=== PATIENT | female | born 1985 | race Caucasian/White ===

== ENCOUNTER 2022-07-31 14:38 | Outpatient (CLI) | payer OTHER, MEDICAID, SELFPAY ==
--- NOTE | 2022-07-31 15:00 | XR_ITS ---
WS: [id number] SCREENING DEXA SCAN Dress Code CLINICAL INFORMATION: hx of gastric bypass surgery-screening dexa COMPARISON: None. FINDINGS: The L1-L4 bone mineral density measures 1.150 g/cm2. This corresponds to a T score score of -0.2 and Z score of -1.4. Left femoral neck bone mineral density measures 1.099 g/cm2. This corresponds to a T score of 0.7 and Z score of 0.1. Right femoral neck bone mineral density measures 1.098 g/cm2. This corresponds to a T score 0.7of and Z score of 0.1. Mean femoral neck bone mineral density measures 1.098 g/cm2. This corresponds to a T score of 0.7 and Z score of 0.1. XR/XR DEXA axial skeleton* [id number] IMPRESSION: Normal bone mineralization. FRAX score not calculated due to age below the range.
== END 2022-07-31 14:39 | disposition home or self-care (01) ==
PROVIDERS: PCP Clinical Nurse Specialist Adult Health; Visit Provider Clinical Nurse Specialist Adult Health
DX: Z98.84 Bariatric surgery status (principal)
CPT/HCPCS: 77080

== ENCOUNTER → 2022-08-08 08:02 | Outpatient (BNVA) | payer OTHER, MEDICAID, SELFPAY | PROVIDERS: PCP Clinical Nurse Specialist Adult Health; Visit Provider Clinical Nurse Specialist Adult Health | DX: Z98.84 Bariatric surgery status (principal); J45.909 Unspecified asthma, uncomplicated; J06.9 Acute upper respiratory infection, unspecified | CPT/HCPCS: 80053; 82306; 82607 ==

== ENCOUNTER → 2023-01-04 10:11 | Outpatient (BNVA) | payer OTHER, MEDICAID, SELFPAY | PROVIDERS: PCP Clinical Nurse Specialist Adult Health; Visit Provider Clinical Nurse Specialist Adult Health | DX: E06.3 Autoimmune thyroiditis (principal); Z12.4 Encounter for screening for malignant neoplasm of cervix; E28.2 Polycystic ovarian syndrome; F39 Unspecified mood [affective] disorder; F32.81 Premenstrual dysphoric disorder; R21 Rash and other nonspecific skin eruption; Z98.84 Bariatric surgery status | CPT/HCPCS: 84436; 84443; 84481 ==

== ENCOUNTER → 2023-01-31 09:40 | Outpatient (BNVA) | payer OTHER, MEDICAID, SELFPAY | PROVIDERS: PCP Clinical Nurse Specialist Adult Health; Visit Provider Nurse Practitioner Women's Health | DX: Z01.419 Encounter for gynecological examination (general) (routine) without abnormal findings (principal); F32.81 Premenstrual dysphoric disorder; E28.2 Polycystic ovarian syndrome; N81.89 Other female genital prolapse | CPT/HCPCS: 87624; 88175 ==

== ENCOUNTER → 2023-02-27 10:23 | Outpatient (BNVA) | payer OTHER, MEDICAID, SELFPAY | PROVIDERS: PCP Clinical Nurse Specialist Adult Health; Visit Provider Nurse Practitioner | DX: J02.9 Acute pharyngitis, unspecified (principal) | CPT/HCPCS: 87880 ==

== ENCOUNTER 2023-03-08 10:50 | Observation (INO) | payer OTHER, MEDICAID, SELFPAY ==
--- NOTE | 2023-03-07 10:35 | ANES.PREANE2 ---
Pre-Anesthetic Assessment Height/Weight: Height 1.68 m Weight 93.44 kg Operation Date: 03/08/23 09:00 Proposed Procedures p Posterior colporrhaphy 51888, Single incision cling 58432 ,N81.6,N39.46(Not Applicable) - Hayden Mota MD s Sling Single Incision Sling(Not Applicable) - Hayden Mota MD Familial anesthetic complications: None Social No alcohol and No tobacco Exam alert, oriented x 3, clear to auscultation bilaterally and regular rate & rhythm Airway Mallampati: Class II Dentition: other (missing) Pulmonary Asthma Metabolic mayur's Anesthetic Plan ASA status: 2 Anesthesia: General Risk of > 500 ml blood loss (7ml/kg in children): No Medications/Allergies Home Medications Medication Instructions Recorded Confirmed Last Taken Type drospirenone 3 mg-ethinyl 1 tab PO DAILY #84 tabs 01/31/23 03/07/23 03/07/23 Rx estradiol 0.02 mg tablet (GREGORIA (28)) fluoxetine 10 mg capsule (Prozac) 10 mg PO DAILY for premenstrual 01/31/23 03/07/23 03/07/23 Rx depression #30 caps Allergies Allergy/AdvReac Type Severity Reaction Status Date / Time penicillin G Allergy Mild RESP. 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 H/O tubal ligation (~2020) History of cryosurgery Hx of gastric bypass (~2016) gastric sleeve Family History Denies family history of Colon cancer Ovarian cancer Diabetes Heart disease Hyperlipidemia Breast cancer Hypertension Uterine cancer Thyroid disease Stroke Female Reproductive History Date of last menstrual period: 02/21/23 Data Anesthesia Cardiac Studies: No Data to Display
[2023-03-07 11:34] LABS: Add Urine Microscopic? NO; Charge for UA Resulting for Rev
[2023-03-07 11:38] LABS: Basophils % 0.5 %; Eosinophils # 0.2 10^3/uL (0.0-0.8); Eosinophils % 2.4 %; Hematocrit 41.4 % (37.0-47.0); Hemoglobin 13.7 g/dL (11.5-15.3); Lymphocytes # 2.3 10^3/uL (0.8-4.8); Lymphocytes % 27.7 %; Mean Corpuscular HGB Conc 33.1 g/dL (30.0-36.0); Mean Corpuscular Volume 84.7 fl (81-99); Mean Platelet Volume 10.9 fL (7.4-10.4); Monocytes # 0.5 10^3/uL (0.2-0.9); Monocytes % 6.3 %; Neutrophils # 5.16 10^3/uL (1.8-7.7); Neutrophils % 62.7 %; Nucleated Red Blood Cells % 0 %; Platelet Count 237 10^3/cmm (130-400); Red Blood Count 4.89 10^6/uL (4.1-5.3); Red Cell Distribution Width 12.9 % (12.1-15.1); White Blood Count 8.2 10^3/uL (4.0-10.0)
[2023-03-07 11:49] LABS: Bilirubin Urine Neg (Negative); Blood Urine Neg (Negative); Glucose Urine UA Norm (Normal); Ketones Urine Negative (Negative); Leukocyte Esterase Urine Negative (Negative); Nitrate Urine Negative (Negative); Protein Urine Neg (Negative); Urine Appearance Clear (CLEAR); Urine Color Yellow (Yellow); Urobilinogen Urine Neg (Negative); pH Urine 7 (5-7)
[2023-03-07 11:55] LABS: Alanine Aminotransferase 8 U/L (0-33); Albumin Level 4.2 g/dL (3.5-5.2); Alkaline Phosphatase 95 U/L (35-105); Anion Gap 15.1 (5-19); Aspartate Amino Transferase 13 U/L (0-32); Blood Urea Nitrogen 13 mg/dL (6-20); Calcium 8.9 mg/dL (8.5-10.5); Carbon Dioxide 22 mmol/L (22-29); Chloride 103 mmol/L (98-107); Globulin 3.1 g/dL (1.3-4.6); Glomerular Filtration Rate 70.1 mL/min (90-130); Glucose 90 mg/dL (65-115); Osmolality Calculated 282 mOsm/kg (285-295); Potassium 4.1 mmol/L (3.5-5.1); Sodium 136 mmol/L (136-145); Total Bilirubin 0.2 mg/dL (0.15-1.2); Total Protein 7.3 g/dL (6.6-8.7)
[2023-03-08] VITALS (15 sets, daily range): BP systolic 100–170; BP diastolic 64–96; PULSE 78–102; RESP 16–20; TEMP 36.2–37.6; O2SAT 90–98
--- NOTE | 2023-03-08 07:36 | P.ANESUD_ITS ---
Pre-Anesthetic Update Pre-Anesthetic Assessment: Date of Surgery/Procedure: 03/08/23 Preop Sonja gnosis: Stress urinary incontinence, rectocele Proposed Procedure: Operation Date: 03/08/23 09:00 Proposed Procedures p Posterior colporrhaphy 95626, Single incision cling 30995 ,N81.6,N39.46(Not Applicable) - Hayden Mota MD s Sling Single Incision Sling(Not Applicable) - Hayden Mota MD Any changes to Pre-Anesthetic Assessment?: No Last Intake: Intake Last Liquid Date 03/07/23 Last Liquid Time 21:00 Last Solid Date 03/08/23 Last Solid Time 21:00 Labs Last 48hrs: Short CBC 03/07/23 Range/Units 10:26 WBC 8.2 (4.0-10.0) 10^3/ uL Hgb 13.7 (11.5-15.3) g/dL Hct 41.4 (37.0-47.0) % MCV 84.7 (81-99) fl Plt Count 237 (130-400) 10^3/c mm Neut % (Auto) 62.7 % Neut # (Auto) 5.16 (1.8-7.7) 10^3/u L BMP 03/07/23 10:26 Sodium 136 Potassium 4.1 Chloride 103 Carbon Dioxide 22 BUN 13 Creatinine 0.9 Glucose 90 Calcium 8.9 Liver Function 03/07/23 Range/Units 10:26 Total Bilirubin 0.2 (0.15-1.2) mg/dL AST 13 (0-32) U/L ALT 8 (0-33) U/L Alkaline Phosphata se 95 (35-105) U/L Albumin 4.2 (3.5-5.2) g/dL Urine 03/07/23 Range/Units 10:26 Urine Color Yellow (Yellow) Urine Appearance Clear (CLEAR) Urine pH 7 (5-7) Ur Specific Gravit y 1.010 (1.005-1.030) Urine Protein Neg (Negative) Urine Glucose (UA) Norm (Normal) Urine Ketones Negative (Negative) Urine Nitrate Negative (Negative) Urine Bilirubin Neg (Negative) Ur Leukocyte Lou ase Negative (Negative) Blood Bank 03/07/23 10:26 Blood Type A Negative Rho(D) Type Negative Antibody Screen Negative Exam: Pre-Anes Outpt Exam: alert, oriented x 3, clear to auscultation bilaterally and regular rate & rhythm Cardiac Studies: No Data to Display
[2023-03-08] MEDS: sodium chloride 0.9% 500 ML IV (07:43)
[2023-03-08] MEDS: scopolamine 1.5 Patch 1 PATCH TRANSDERMA (07:43)
--- NOTE | 2023-03-08 07:47 | W.PM.OPSUD ---
Surgery/Procedure H&P Update DATE OF PROCEDURE: March 08, 2023 DATE H&P PERFORMED: 03/06/23 H&P UPDATE INFORMATION: I have reviewed H&P completed within last 30 days, I have examined patient prior to procedure and No changes to prior documentation PREOP DIAGNOSIS: Stress urinary incontinence, rectocele PLANNED PROCEDURE: Operation Date: 03/08/23 09:00 Proposed Procedures p Posterior colporrhaphy 71613, Single incision cling 35174 ,N81.6,N39.46(Not Applicable) - Hayden Mota MD s Sling Single Incision Sling(Not Applicable) - Hayden Mota MD
[2023-03-08] MEDS: sodium chloride 0.9% 1,000 ML 30 ML IV (08:04)
[2023-03-08] MEDS: levofloxacin-dextrose 5 % 500 MG/100 ML PREMIX 100 MG IV (08:31)
[2023-03-08 08:32] LABS: OR HCG Qualitative Urine Negative (Negative)
[2023-03-08] MEDS: lidocaine-epi 2% 20 mL INJ INJECTION ×2 (09:08→09:23)
[2023-03-08] MEDS: vancomycin 1,000 MG in sodium chloride 0.9% 250 ML 250 MG IV (09:09)
[2023-03-08] MEDS: estrogens Conjugated Cream 30 gm 1 APPLIC VAGINAL (10:04)
--- NOTE | 2023-03-08 10:29 | P.OP_ITS ---
Operative Report Date of procedure: March 08, 2023 Pre-op diagnosis: Preop Diagnosis Stress urinary incontinence, rectocele Post-op diagnosis: Same Procedure done: Single incision mid urethral sling. Posterior colporrhaphy. Cystoscopy Surgeon: Hayden Mota MD Estimated blood loss (mL): 200 IV fluids (mL): 800 Urine output (mL): 300 Procedure: After obtaining informed consent, the patient was taken to the operating room and placed in the supine position, given general anesthesia, and prepped and draped in sterile fashion. The abdomen, vulva and vagina were prepped and draped in a sterile manner. A time out procedure was performed. The anterior vaginal mucosa beneath the midurethra was infiltrated with 2% lidocaine with epinephrine. A vertical midline incision was made beneath the midurethra, nearly 1.5 cm length. Careful submucosal dissection was performed bilaterally up to the interior portion of the inferior pubic ramus. The insertion of adductor longus tendon on the patient?s pubic ramus was identified as reference land roddy. Palpated the notch along the internal edge of ischiopubic ramus where the adductor longus tendon and the inferior pubic ramus meet. The Altis single incision sling (SIS) was selected. Then the needle of the SIS inserted aiming at the location of this notch. One of the integrated self-fixating tips place onto the needle by sliding it over the end of the needle. The needle/sling assembly was inserted toward the location of identified reference notch making sure that the flat of the handle is perpendicular to the desired path. The needle was tracked along the posterior surface of the ischiopubic ramus until the midline roddy on the mesh is approximately at the midline position under the urethra. The needle was removed and the same was repeated on the contralateral side until the appropriate sling tension under the urethra was achieved ensuring that the mesh lays flat. The needle was removed and vaginal incision was closed in a running interlocking fashion with 2-0 Vicryl. A 2% lidocaine with epinephrine was infiltrated under the posterior vaginal muco sa midline and into the perineal body. An diamine shaped perineorrhaphy was cut in the perineum. The posterior vaginal wall was opened vertically and midline up to the apex of the rectocele. The cut edges were held and splayed laterally with a series of [Allis/Kochers/T-clamps]. The open vaginal mucosa was then dissected laterally with a combination of sharp and blunt dissection, exposing the ashley rectal fascia. The perirectal fascia was then reapproximated with interrupted #2-0 Vicryl sutures to draw the lateral folds together and tuck the rectocele back. Deep interrupted sutures of #0 Vicryl were used to reapproximate the fibers of the levator ani muscles. The excess vaginal mucosa was trimmed. The posterior vaginal wall was closed with a running locked #0 Vicryl to the hymenal tags. The superficial perineal muscles were closed with running unlocked #0 Vicryl and the perineal skin was closed with running subcuticular #2-0 Vicryl. Then the Lowe catheter was removed and cystoscope was inserted. The bladder was filled with sterile water. Complete evaluation of the bladder mucosa was performed noting no lacerations, dimpling, tears, bleeding of the mucosa or muscular layers. Both ureteral orifices were identified. Prompt excretion of urine from both ureteral orifices was noted. Cystoscope was withdrawn. The Lowe catheter was replaced. Excellent hemostasis was obtained. A vaginal pack is placed overnight as postoperative support for the vaginal tissues after graft placement and closure of vaginal incisions. Sponge, lap, needle, and instrument counts were correct times three. The patient was taken to the recovery room, awake and in stable condition.
--- NOTE | 2023-03-08 11:26 | SUR.PHASEI ---
pt arrived in recovery breathing room air pt responds to verbal cues moves all extremities. pt vitals stable for recovery time pt states no pain when asked. pt taken to room in ob report given to nurse belongings placed in patient room a belonging bag with clothes, a purse and a backpack were placed in room with patient.
[2023-03-08] MEDS: lanolin oint 7 gm 1 APPLIC TOPICAL (12:47)
[2023-03-08] MEDS: ketorolac 30 mg/mL INJ IVP ×3 (12:47→23:12)
[2023-03-08] MEDS: dextrose 5%-lactated ringers 1,000 ML 125 ML IV ×2 (12:54→20:00)
--- NOTE | 2023-03-08 13:59 | ANE.PACU2 ---
Inpatient post-anesthesia follow up: Airway intact: Yes Vital signs: Temperature 97.9 F Pulse Rate 80 Respiratory Rate 18 Blood Pressure 137/82 Pulse Oximetry 93 Oxygen Delivery Me thod Room Air Oxygen Flow Rate Fraction of Inspir ed Oxygen Hydration adequate: Yes Nausea and vomiting: No Pain level: 1 Mental status: Baseline
--- NOTE | 2023-03-08 16:25 | PC.NURSE ---
Patient transitioned from bed to chair with Eligio Cardenas RN and Orlando Sharma RN available for standby assistance, patient toleration of activity was fair with mild discomfort and labored respirations throughout. Patient now comfortable seated in chair with call light in reach. Denies further needs at this time, encouraged to call if any arise.
[2023-03-08] MEDS: docusate sodium 100 mg Capsule PO (17:09)
[2023-03-09] MEDS: ketorolac 30 mg/mL INJ IVP (04:58)
[2023-03-09 05:03] VITALS: BP 129/85; PULSE 74; RESP 18; O2SAT 97
[2023-03-09 05:10] VITALS: TEMP 36.8
[2023-03-09 05:12] LABS: Hemoglobin 10.5 g/dL (11.5-15.3); Mean Corpuscular HGB Conc 32.8 g/dL (30.0-36.0); Mean Corpuscular Hemoglobin 28.1 pg (28.0-34.0); Mean Corpuscular Volume 85.6 fl (81-99); Mean Platelet Volume 10.5 fL (7.4-10.4); Platelet Count 159 10^3/cmm (130-400); Red Blood Count 3.74 10^6/uL (4.1-5.3); Red Cell Distribution Width 12.7 % (12.1-15.1); White Blood Count 9.6 10^3/uL (4.0-10.0)
[2023-03-09] MEDS: fluoxetine 10 mg Capsule PO (09:20)
[2023-03-09] MEDS: docusate sodium 100 mg Capsule PO (09:21)
[2023-03-09] MEDS: ibuprofen 800 mg tablet PO (10:08)
--- NOTE | 2023-03-09 10:11 | PM.OBGYDC ---
Discharge Providers SMT MACHINE OPERATOR Date of Admission: 03/08/23 10:50 Date of Discharge: 03/09/23 Attending Provider at Admission: Hayden Mota MD Attending Provider at Discharge: Hayden Mota MD Primary SMT MACHINE OPERATOR: Hayden Mota MD Primary Care Provider: Roberto Tobar Reason for Visit Reason for Visit: N95.0 Hospital Course Hospital Course Mrs. Ji 37-year-old female with rectocele stage II and stress urinary incontinence. Was admitted for planned single incision mid urethral sling and posterior colporrhaphy. The procedures were performed without complication. She is afebrile hemodynamically stable postoperative day 1. Overnight observation uneventful. PVR after first void within normal limits. Tolerating diet well. Ambulating without difficulty. She was counseled regarding limitation on heavy weight lifting to 10 pounds and pelvic rest for 6 weeks (no sex, no tampons, no vaginal douches). Return to the emergency room if any fever, increased bleeding or pain. Physical Exam Narrative: GA: Alert and oriented ?3. HEENT: WNL. Heart: Regular rate and rhythm. Lungs: Clear to auscultation bilaterally. Abdomen: Bowel sounds present, nontender, minimal tenderness. [employer]ANCE: Spotting bleeding. Extremities: No edema, no cyanosis, no calves pain. Urinary Catheter Management: Lowe: Cath Placed During This Visit: yes, but has since been removed by the nurse Reason for Continuing Indwelling Catheter: Decision to DC Catheter Urinary Catheter Date of Insertion: 03/08/23 Urinary Catheter Time of Insertion: 09:03 Date Urinary Catheter Removed: 03/09/23 Time Urinary Catheter Discontinued: 05:03 History History History 5 Term 2 0 Miscarriages/Ectopic 3 Living Children 2 Discharge Data Studies Completed and Pending Pending at discharge Category Date Time Status Urine Culture Routine Lab 03/07/23 10:26 Results Laboratory Results WBC 9.6 10^3/uL (4.0-10.0) 03/09/23 05:09 RBC 3.74 10^6/uL (4.1-5.3) L 03/09/23 05:09 Hgb 10.5 g/dL (11.5-15.3) L 03/09/23 05:09 Hct 32.0 % (37.0-47.0) L 03/09/23 05:09 MCV 85.6 fl (81-99) 03/09/23 05:09 MCH 28.1 pg (28.0-34.0) 03/09/23 05:09 MCHC 32.8 g/dL (30.0-36.0) 03/09/23 05:09 RDW 12.7 % (12.1-15.1) 03/09/23 05:09 Plt Count 159 10^3/cmm (130-400) 03/09/23 05:09 MPV 10.5 fL (7.4-10.4) H 03/09/23 05:09 Neut % (Auto) 62.7 % 03/07/23 10:26 Lymph % (Auto) 27.7 % 03/07/23 10:26 Maries % (Auto) 6.3 % 03/07/23 10:26 Eos % (Auto) 2.4 % 03/07/23 10:26 Baso % (Auto) 0.5 % 03/07/23 10:26 Neut # (Auto) 5.16 10^3/uL (1.8-7.7) 03/07/23 10:26 Lymph # (Auto) 2.3 10^3/uL (0.8-4.8) 03/07/23 10:26 Maries # (Auto) 0.5 10^3/uL (0.2-0.9) 03/07/23 10:26 Eos # (Auto) 0.2 10^3/uL (0.0-0.8) 03/07/23 10:26 Baso # (Auto) 0.0 10^3/uL (0.0-0.1) 03/07/23 10:26 Nucleated RBC % (auto) 0 % 03/07/23 10:26 Nucleated RBCs # 0.0 /100WBC 03/07/23 10:26 Sodium 136 mmol/L (136-145) 03/07/23 10:26 Potassium 4.1 mmol/L (3.5-5.1) 03/07/23 10:26 Chloride 103 mmol/L (98-107) 03/07/23 10:26 Carbon Dioxide 22 mmol/L (22-29) 03/07/23 10:26 Anion Gap 15.1 (5-19) 03/07/23 10:26 BUN 13 mg/dL (6-20) 03/07/23 10:26 Creatinine 0.9 mg/dL (0.5-0.9) 03/07/23 10:26 GFR Calculation 70.1 mL/min (90-130) L 03/07/23 10:26 Glucose 90 mg/dL (65-115) 03/07/23 10:26 Calculated Osmolality 282 mOsm/kg (285-295) L 03/07/23 10:26 Calcium 8.9 mg/dL (8.5-10.5) 03/07/23 10:26 Total Bilirubin 0.2 mg/dL (0.15-1.2) 03/07/23 10:26 AST 13 U/L (0-32) 03/07/23 10:26 ALT 8 U/L (0-33) 03/07/23 10:26 Alkaline Phosphatase 95 U/L (35-105) 03/07/23 10:26 Total Protein 7.3 g/dL (6.6-8.7) 03/07/23 10:26 Albumin 4.2 g/dL (3.5-5.2) 03/07/23 10:26 Globulin 3.1 g/dL (1.3-4.6) 03/07/23 10:26 Urine Color Yellow (Yellow) 03/07/23 10:26 Urine Appearance Clear (CLEAR) 03/07/23 10:26 Urine pH 7 (5-7) 03/07/23 10:26 Ur Specific Renner 1.010 (1.005-1.030) 03/07/23 10:26 Urine Protein Neg (Negative) 03/07/23 10:26 Urine Glucose (UA) Norm (Normal) 03/07/23 10:26 Urine Ketones Negative (Negative) 03/07/23 10:26 Urine Blood Neg (Negative) 03/07/23 10:26 Urine Nitrate Negative (Negative) 03/07/23 10:26 Urine Bilirubin Neg (Negative) 03/07/23 10:26 Urine Urobilinogen Neg mg/dL (Negative) 03/07/23 10:26 Ur Leukocyte Esterase Negative (Negative) 03/07/23 10:26 Urine HCG, Qual Negative (Negative) 03/08/23 07:30 Blood Type A Negative 03/07/23 10:26 Rho(D) Type Negative 03/07/23 10:26 Antibody Screen Negative 03/07/23 10:26 Vitals Last Vital Signs Temp 98.2 F 03/09/23 05:10 Pulse 74 03/09/23 05:03 Resp 18 03/09/23 05:03 BP 129/85 03/09/23 05:03 Pulse Ox 97 03/09/23 05:03 O2 Del Method Room Air 03/09/23 05:03 Discharge Plan Discharge Patient Disposition: Home Condition: Stable Prescriptions: New hydrocodone-acetaminophen 5-325 mg tablet 1 tab PO Q4H PRN (Reason: pain) Qty: 20 0RF docusate sodium [Colace] 100 mg capsule 100 mg PO BID Qty: 60 0RF acetaminophen 325 mg capsule 325 mg PO Q4H PRN (Reason: fever or postoperative pain) Qty: 60 0RF ferrous sulfate [Iron (ferrous sulfate)] 325 mg (65 mg iron) tablet 325 mg PO BID Qty: 60 0RF ibuprofen 800 mg tablet 800 mg PO TID PRN (Reason: pain) Qty: 60 0RF Continued drospirenone-ethinyl estradiol [GREGORIA (28)] 3-0.02 mg tablet 1 tab PO DAILY Qty: 84 0RF fluoxetine [Prozac] 10 mg capsule 10 mg PO DAILY Qty: 30 1RF Discharge Orders: Discharge Order (Routine); Ordered 03/09/23 Ordered By: Hayden Mota Referrals: Hayden Mota MD [Physician] - 03/27/23 1:15 pm (Your follow up appointment with Dr. Mota is on 03/27/23 at 1:15pm. ) Discharge Diet: Soft Mechanical Discharge Activity: Limit activity as instructed Patient Instructions: Ibuprofen (By injection), Bladder Sling for Women (GEN), OB Discharge Report, OB Food/Drug Interaction Guide, Opioid Safety, Posterior Vaginal Repair (GEN) Activity Restrictions/Additional Instructions: 1. Please call [facility] on next working day to make your post-operative appointment in 2 weeks. 2. Please stay home until you come back to the clinic on first post-hospatilization check up. 3. Please follow instructions on your medications CAREFULLY. 4. If you have abdominal incision, do not cover it unless dressing is necessary because of drainage. OK to shower, but avoid bath. Leave steri-strips until they fall off. If they are still on one week after surgery, you may remove them. 5. If you had vaginal surgery or vaginal repair, Dr. Mota may instruct you to take SITZ bath. 6. Yellow, blood tinged odorous vaginal discharge is usually normal after hysterectomy or vaginal surgeries. 7. No SEXUAL INTERCOURSE, tampons, or douches until you are completely released from the post-operative care. 8. Avoid constipation by eating right and maybe using some Metamucil or Milk of Magnesia. 9. All prescription refills are given during the working hours. Please do no wait till it runs out. Call the clinic at [phone] before your medication runs out. The clinic will get in touch with your doctor to prescribe medications if necessary. 10. Please remain within 40 mile radius from our hospital because emergencies do happen now and then during the post-operative period. 11. If you have stairs at home, take one step at a time slowly and minimize the number of trips. It helps to stay in one floor for the next few days. No lifting except what you can lift by one hand until you are released from the post-operative care. 12. Driving is discouraged until you are well healed. It may be 3-4 weeks before you feel strong enough to drive. You should be able to turn and look through the rear window without pain and you should be able to push the brake pedal very hard without pain before you drive. No fast rules, but SAFETY should be your primary concern. DO NOT drive if you are on sedating medications such as narcotics. 13. Call the clinic (during working hours) to make urgent appointment or go to the Emergency room, if any of the following occurs: i. Vaginal bleeding becomes heavy, more than a period. ii. Incision becomes red and sore, or drains pus. iii. Your TEMPERATURE is over 100.4F or you have chill. iv. IV site becomes red and swollen (a little ``knot?? is usually OK) v. Persistent nausea and vomiting vi. Persistent constipation or diarrhea vii. Rash or allergic reaction to medications. Discharge Attestations SMT MACHINE OPERATOR Time Spent in Discharge Care*: greater than 30 min Coding Level of Care Code Acute Code for Chg Fwd Diagnoses
[2023-03-09 10:48] VITALS: BP 133/86; PULSE 72; RESP 18; TEMP 37.4; O2SAT 96
[2023-03-09 11:00] VITALS: BP 133/86; PULSE 72; RESP 18; TEMP 37.4; O2SAT 96
== END 2023-03-09 10:52 | disposition home or self-care (01) ==
LOC: OBGYN 10:52
PROVIDERS: Admitting Provider Obstetrics & Gynecology; PCP Clinical Nurse Specialist Adult Health; Visit Provider Obstetrics & Gynecology
PROC: (CPT 57250; principal; 2023-03-08 09:00)
PROC: (CPT 57288; 2023-03-08 09:00)
PROC: 0TJB8ZZ Inspection of Bladder, Via Natural or Artificial Opening Endoscopic (ICD-10-PCS; CPT 52000; 2023-03-08 09:00)
DX: N81.3 Complete uterovaginal prolapse (principal); N39.46 Mixed incontinence; J45.909 Unspecified asthma, uncomplicated; E66.01 Morbid (severe) obesity due to excess calories; Z68.33 Body mass index [BMI] 33.0-33.9, adult; Z88.0 Allergy status to penicillin
CPT/HCPCS: 57250; 57288; 36415; 51798; 80053; 81003; 81025; 84703; 85025; 85027; 86850; 86900; 87086; 96374; 96376; C1713; G0378; J0171; J1100; J1200; J1885; J1956; J2250; J2405; J2704; J2710; J3010; J3370; J3490; J7030; J7040; J7050; J7121

== ENCOUNTER → 2023-07-24 09:47 | Outpatient (BNVA) | payer BC, MEDICAID, SELFPAY | PROVIDERS: PCP Clinical Nurse Specialist Adult Health; Visit Provider Clinical Nurse Specialist Adult Health | DX: J06.9 Acute upper respiratory infection, unspecified (principal); Z20.822 Contact with and (suspected) exposure to COVID-19 | CPT/HCPCS: 87426 ==

== ENCOUNTER → 2024-02-14 07:53 | Outpatient (BNVA) | payer BC, MEDICAID, SELFPAY | PROVIDERS: PCP Clinical Nurse Specialist Adult Health; Visit Provider Clinical Nurse Specialist Adult Health | DX: I10 Essential (primary) hypertension (principal) | CPT/HCPCS: 83036; 85025; 87045; 87046; 87177; 87209; 87427; 87449; 87493 ==

== ENCOUNTER → 2024-04-07 09:30 | Outpatient (BNVA) | payer BC, MEDICAID, SELFPAY | PROVIDERS: PCP Clinical Nurse Specialist Adult Health; Visit Provider Clinical Nurse Specialist Adult Health | DX: N39.0 Urinary tract infection, site not specified (principal) | CPT/HCPCS: 81000 ==

== ENCOUNTER 2024-06-03 08:18 | Outpatient (CLI) | payer BC, MEDICAID, SELFPAY ==
--- NOTE | 2024-06-03 08:30 | MM_ITS ---
WS: [id number] BILATERAL 3D TOMOSYNTHESIS DIGITAL SCREENING MAMMOGRAPHY WITH CAD CLINICAL INFORMATION: Z12.31 - Encounter for screening mammogram for malignant ... HISTORY: Screening mammogram. No current complaints. COMPARISON: None. TECHNIQUE: Bilateral CC and MLO views. FINDINGS: The breasts are composed of heterogeneous fibroglandular density tissue, which can limit the detectio n of small underlying mass lesions. No suspicious mass, asymmetry, calcifications, or architectural d istortion. No evidence of malignancy. MM/[place] [id number] IMPRESSION: BI-RADS: 1-Negative FOLLOW UP: 1 Year Follow-up Recommend return to annual screening mammography.
== END 2024-06-03 08:19 | disposition home or self-care (01) ==
LOC: RAD 08:18
PROVIDERS: PCP Clinical Nurse Specialist Adult Health; Visit Provider Nurse Practitioner Women's Health
DX: Z12.31 Encounter for screening mammogram for malignant neoplasm of breast (principal); R92.333 Mammographic heterogeneous density, bilateral breasts
CPT/HCPCS: 77063; 77067

== ENCOUNTER 2024-06-29 20:57 | Emergency (ER) | payer BC, MEDICAID, SELFPAY ==
[2024-06-29] VITALS (8 sets, daily range): BP systolic 133–178; BP diastolic 97–105; PULSE 105–118; RESP 16–25; TEMP 37.2; O2SAT 94–100; BMI 34.7
--- NOTE | 2024-06-29 21:17 | XRR_ITS ---
PROCEDURE INFORMATION: Exam: XR Chest Exam date and time: 06/29/2024 9:30 PM Age: 38 years old Clinical indication: Cough and shortness of breath; Prior surgery; Surgery date: 6+ months; Surgery type: Gastric sleeve; Patient HX: C/O cough with SOB. History of asthma. TECHNIQUE: Imaging protocol: Radiologic exam of the chest. Views: 1 view. COMPARISON: No relevant prior studies available. FINDINGS: Lungs: Left lung ground-glass airspace opacities suggestive of an early bronchopneumonia. Pleural spaces: Unremarkable. No pleural effusion. No pneumothorax. Heart/Mediastinum: Unremarkable. No cardiomegaly. Bones/joints: Unremarkable. XR/XR chest 1V portable [id number] IMPRESSION: Left lung ground-glass airspace opacities suggestive of an early bronchopneumonia.
[2024-06-29] MEDS: ipratropium-albuterol 3 mL Neb INHALATION (21:20)
--- NOTE | 2024-06-29 21:34 | ED_ITS ---
HPI - SOB/Dyspnea 2 General: Chief Complaint: Shortness of Breath/Dyspnea Stated Complaint: Asthma attack Cant breathe Time Seen by Provider: 06/29/24 21:08 History of Present Illness: HPI Narrative: 38-year-old female with a history of ast hma. She presents after developing cough, runny nose, and sudden short of breath this afternoon. Its progressed this afternoon into the evening. She used her inhaler without much improvement. Related Data Previous Rx's Medication Instructions Recorded mupirocin 2 % topical ointment 1 applic topical BID #15 grams 12/06/23 losartan 50 mg tablet 50 mg PO DAILY #30 tabs 02/14/24 fluoxetine 10 mg capsule See Rx Instructions .Route 05/12/24 .COMPLEX #30 caps clindamycin phosphate 1 % topical 1 applic topical DAILY #50 grams 05/21/24 foam drospirenone 3 mg-ethinyl See Rx Instructions .Route 05/21/24 estradiol 0.02 mg tablet (Loryna .COMPLEX #84 tabs (28)) doxycycline hyclate 100 mg tablet 100 mg PO BID 7 days #14 tabs 06/29/24 prednisone 50 mg tablet 50 mg PO DAILY 5 days #5 tabs 06/29/24 Allergies Allergy/AdvReac Type Severity Reaction Status Date / Time penicillin G Allergy Mild RESP. 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 Performed by Dr. Mota at [facility] History of cryosurgery H/O dilation and curettage treatment for SAB at 10-12 weeks-- had fever and infection. H/O tubal ligation (~2020) Hx of gastric bypass (~2016) gastric sleeve Family History Denies family history of Colon cancer Ovarian cancer Diabetes Heart disease Hyperlipidemia Breast cancer Hypertension Uterine cancer Thyroid disease Stroke Physical Exam 2 Const: GENERAL APPEARANCE: cooperative and ill appearing (Mildly); not frail appearing HENMT: COMMON NORMALS: normocephalic, atraumatic and Normal external nose present HEAD & SCALP: normocephalic and atraumatic FACE & SINUS: normal facial exam and face symmetric NOSE: Normal external nose present Eye: COMMON NORMALS: Equal, round and reactive pupils present and EOMs intact bilaterally PUPIL: Yes Equal, round and reactive pupils present Neck/C-Spine: GENERAL: Yes trachea midline Chest: CHEST: Yes Symmetrical chest wall rise Resp: EFFORT & INSPECTION: Yes tachypneic and Yes uses accessory muscles A USCULTATION: wheezes (Intermittent) expiratory wheezes Cardio: COMMON NORMALS: regular rate and regular rhythm RATE: regular rate RHYTHM: regular rhythm GI: COMMON NORMALS: Normal to inspection, nondistended, normoactive bowel sounds present Extremity: COMMON NORMALS: no pedal edema Neuro: GERDA COMA SCALE: document GCS findings [place] coma scale eye opening: Spontaneous [place] coma scale verbal response: Orientated [place] coma scale motor response: Obey commands [place] coma scale total score: 15 S ENSORY EXAM: Yes extremities (intact) Psych: COMMON NORMALS: speech normal SPEECH: Yes normal speech Skin: COMMON NORMALS: no rashes or lesions noted GENERAL SKIN EXAM: no rashes or lesions noted Course 2 Vital Signs: Vital signs: Vital Signs Temperature 99 F 06/29/24 21:00 Pulse Rate 107 H 06/29/24 23:00 Respiratory Rate 16 06/29/24 23:00 Blood Pressure 149/97 06/29/24 23:00 Pulse Oximetry 100 06/29/24 23:00 Oxygen Delivery Me thod Room Air 06/29/24 21:27 MDM - SOB/Dyspnea Medical Decision Making Improved after breathing treatment. Chest x-ray is not impressive to me. Radiologist read of his left lung groundglass airspace opacities suggestive of possible early bronchopneumonia. Should be covered with antibiotics. COVID test is negative. Other laboratory is essentially normal. Burst of steroid. Albuterol inhaler. Lab Data 06/29/24 21:39 06/29/24 21:39 Labs/Radiology: Radiology Impressions Chest X-Ray 06/29/24 21:17 IMPRESSION: Left lung ground-glass airspace opacities suggestive of an early bronchopneumonia. Laboratory Results WBC 9.40 10^3/uL (3.29-11.43) 06/29/24 21:39 RBC 4.93 10^6/uL (3.85-5.65) 06/29/24 21:39 Hgb 13.50 g/dL (11.27-16.99) 06/29/24 21:39 Hct 42.0 % (36-47) 06/29/24 21:39 MCV 85.2 fl (85-98) 06/29/24 21:39 MCH 27.4 pg (27-33) 06/29/24 21:39 MCHC 32.1 g/dL (30-55) 06/29/24 21:39 RDW 12.4 % (12.1-15.1) 06/29/24 21:39 Plt Count 200 10^3/cmm (157-399) 06/29/24 21:39 MPV 10.2 fL (7.4-10.4) 06/29/24 21:39 Neut % (Auto) 63.3 % 06/29/24 21:39 Lymph % (Auto) 27.6 % 06/29/24 21:39 [place] % (Auto) 6.8 % 06/29/24 21:39 Eos % (Auto) 1.8 % 06/29/24 21:39 Baso % (Auto) 0.2 % 06/29/24 21:39 Neut # (Auto) 5.95 10^3/uL (1.8-7.7) 06/29/24 21:39 Lymph # (Auto) 2.6 10^3/uL (0.8-4.8) 06/29/24 21:39 [place] # (Auto) 0.6 10^3/uL (0.2-0.9) 06/29/24 21:39 Eos # (Auto) 0.2 10^3/uL (0.0-0.8) 06/29/24 21:39 Baso # (Auto) 0.0 10^3/uL (0.0-0.1) 06/29/24 21:39 Nucleated RBC % (auto) 0 % 06/29/24 21:39 Nucleated RBCs # 0.0 /100WBC 06/29/24 21:39 Sodium 138 mmol/L (136-145) 06/29/24 21:39 Potassium 3.9 mmol/L (3.5-5.1) 06/29/24 21:39 Chloride 100 mmol/L (98-107) 06/29/24 21:39 Carbon Dioxide 24 mmol/L (22-29) 06/29/24 21:39 Anion Gap 17.9 (5-19) 06/29/24 21:39 BUN 10 mg/dL (6-20) 06/29/24 21:39 Creatinine 0.7 mg/dL (0.5-0.9) 06/29/24 21:39 GFR Calculation 93.2 mL/min (90-130) 06/29/24 21:39 Glucose 91 mg/dL (65-115) 06/29/24 21:39 Calculated Osmolality 285 mOsm/kg (285-295) 06/29/24 21:39 Calcium 9.5 mg/dL (8.5-10.5) 06/29/24 21:39 Total Bilirubin 0.2 mg/dL (0.15-1.2) 06/29/24 21:39 AST 8 U/L (0-32) 06/29/24 21:39 ALT < 5 U/L (0-33) 06/29/24 21:39 Alkaline Phosphatase 101 U/L (35-105) 06/29/24 21:39 Troponin T Baseline < 6 ng/L (0-10) 06/29/24 21:39 NT-Pro-B Natriuret Pep 59 pg/mL (0-125) 06/29/24 21:39 Total Protein 7.4 g/dL (6.6-8.7) 06/29/24 21:39 Albumin 4.6 g/dL (3.5-5.2) 06/29/24 21:39 Globulin 2.8 g/dL (1.3-4.6) 06/29/24 21:39 SARS-CoV-2 Ag (Rapid) negative (Negative) 06/29/24 21:40 All radiology interpretation(s) finalized by discharge Discharge Plan Discharge Patient Disposition: Home Clinical Impression: Asthma with exacerbation Condition: Stable Prescriptions: New doxycycline hyclate 100 mg tablet 100 mg PO BID 7 Days Qty: 14 0RF prednisone 50 mg tablet 50 mg PO DAILY 5 Days Qty: 5 0RF No Action mupirocin 2 % ointment 1 applic topical BID Qty: 15 0RF losartan 50 mg tablet 50 mg PO DAILY Qty: 30 3RF drospirenone-ethinyl estradiol [Loryna (28)] 3-0.02 mg tablet See Rx Instructions .ROUTE .COMPLEX Qty: 84 3RF Dose Instruction: Take 1 tablet by mouth once daily Rx Instructions: Take 1 tablet by mouth once daily clindamycin phosphate 1 % foam 1 applic topical DAILY Qty: 50 2RF Rx Instructions: apply to the inner thighs fluoxetine 10 mg capsule See Rx Instructions .ROUTE .COMPLEX Qty: 30 2RF Dose Instruction: TAKE 1 CAPSULE BY MOUTH ONCE DAILY FOR PREMENSTRUAL DEPRESSION Rx Instructions: TAKE 1 CAPSULE BY MOUTH ONCE DAILY FOR PREMENSTRUAL DEPRESSION Discharge Orders: Discharge ED (Routine); Ordered 06/29/24 Ordered By: Hany Amezquita Referrals: Roberto Tobar [facility] [Primary Care Provider] - 1-3 days Patient Instructions: Asthma (ED), Opioid Safety, Pain Management Activity Restrictions/Additional Instructions: Medication as directed. You may have had some early changes on your x-ray suggestive of infection from radiology. As a result, you will be covered with antibiotics. Use your inhaler every 4 hours while awake for the next 48 hours, then as needed following that. Return for any problems. See your doctor this week. 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
[2024-06-29] MEDS: methylPREDNISolone sod succ 125 mg/2 mL INJ IVP (21:39)
[2024-06-29 22:08] LABS: Basophils % 0.2 %; Eosinophils # 0.2 10^3/uL (0.0-0.8); Eosinophils % 1.8 %; Lymphocytes # 2.6 10^3/uL (0.8-4.8); Lymphocytes % 27.6 %; Mean Corpuscular HGB Conc 32.1 g/dL (30-55); Mean Corpuscular Hemoglobin 27.4 pg (27-33); Mean Corpuscular Volume 85.2 fl (85-98); Mean Platelet Volume 10.2 fL (7.4-10.4); Monocytes # 0.6 10^3/uL (0.2-0.9); Monocytes % 6.8 %; Neutrophils # 5.95 10^3/uL (1.8-7.7); Neutrophils % 63.3 %; Nucleated Red Blood Cells % 0 %; Platelet Count 200 10^3/cmm (157-399); Red Blood Count 4.93 10^6/uL (3.85-5.65); Red Cell Distribution Width 12.4 % (12.1-15.1)
[2024-06-29 22:27] LABS: Troponin(5th) Baseline < 6 ng/L (0-10)
[2024-06-29 22:29] LABS: SARS Covid-2 Antigen negative (Negative)
[2024-06-29 22:36] LABS: Alanine Aminotransferase < 5 U/L (0-33); Albumin Level 4.6 g/dL (3.5-5.2); Alkaline Phosphatase 101 U/L (35-105); Anion Gap 17.9 (5-19); Aspartate Amino Transferase 8 U/L (0-32); Blood Urea Nitrogen 10 mg/dL (6-20); Calcium 9.5 mg/dL (8.5-10.5); Carbon Dioxide 24 mmol/L (22-29); Chloride 100 mmol/L (98-107); Creatinine Clr Calc Pharmacy 122.8479; Globulin 2.8 g/dL (1.3-4.6); Glomerular Filtration Rate 93.2 mL/min (90-130); Glucose 91 mg/dL (65-115); NT Pro B Type Natriuretic Pept 59 pg/mL (0-125); Osmolality Calculated 285 mOsm/kg (285-295); Potassium 3.9 mmol/L (3.5-5.1); Sodium 138 mmol/L (136-145); Total Bilirubin 0.2 mg/dL (0.15-1.2); Total Protein 7.4 g/dL (6.6-8.7)
[2024-06-29] MEDS: lidocaine 2% viscous 15 ML, aluminum-mag hydrox-simethicon 30 ML, sucralfate oral liq 1 GM PO (23:06)
[2024-06-29] MEDS: doxycycline 100 mg Tablet PO (23:07)
[2024-06-29] MEDS: albuterol 8 gm MDI 2 PUFF INHALATION (23:16)
== END 2024-06-29 23:13 | disposition home or self-care (01) ==
PROVIDERS: Emergency Provider Emergency Medicine; PCP Clinical Nurse Specialist Adult Health
DX: J45.901 Unspecified asthma with (acute) exacerbation (principal); Z11.52 Encounter for screening for COVID-19
CPT/HCPCS: 71045; 80053; 83880; 84484; 85025; 87426; 94640; 96374; 99285; J2919; J3535

== ENCOUNTER → 2025-05-27 09:50 | Outpatient (BNVA) | payer BC, SELFPAY | PROVIDERS: PCP Clinical Nurse Specialist Adult Health; Visit Provider Nurse Practitioner Women's Health | DX: Z01.419 Encounter for gynecological examination (general) (routine) without abnormal findings (principal) | CPT/HCPCS: 87624 ==

== ENCOUNTER 2025-06-10 10:15 | Outpatient (CLI) | payer BC, SELFPAY ==
--- NOTE | 2025-06-10 10:40 | MM_ITS ---
WS: [id number] BILATERAL SCREENING DIGITAL TOMOSYNTHESIS MAMMOGRAM WITH CAD HISTORY: Z12.31 - Encounter for screening mammogram for malignant ... COMPARISON: 06/03/2024 Bilateral CC and MLO views with tomosynthesis and synthetic mammography submitted. Computer aided detection analyzed. Breast composition: There are scattered areas of fibroglandular density. No suspicious masses, microcalcifications or architectural distortion. MM/MM scr BI tomosynthesis [id number] IMPRESSION: BI-RADS: 1 - Negative. FOLLOW UP: 1 Year Follow-up
== END 2025-06-10 10:16 | disposition home or self-care (01) ==
PROVIDERS: Visit Provider Nurse Practitioner Women's Health
DX: Z12.31 Encounter for screening mammogram for malignant neoplasm of breast (principal)
CPT/HCPCS: 76830; 77063; 77067

== ENCOUNTER → 2025-06-15 13:58 | Outpatient (BNVA) | payer BC, SELFPAY | PROVIDERS: Visit Provider Obstetrics & Gynecology | DX: E28.2 Polycystic ovarian syndrome (principal); F32.81 Premenstrual dysphoric disorder | CPT/HCPCS: 84146; 84439; 84443; 85025 ==

== ENCOUNTER 2025-08-19 08:04 | Outpatient (CLI) | payer BC, SELFPAY ==
--- NOTE | 2025-08-19 09:00 | US_ITS ---
WS: [id number] US transvaginal [id number] HISTORY: Endometrial polyp. COMPARISON: 06/10/2025 Uterus: 8.4 cm x 5.9 cm x 5.0 cm. Normal size anteverted uterus. No fibroid or mass. Endometrium: 1.1 cm. Overall the endometrial size is normal. Reidentified is the focal area of increased echogenicity along the posterior endometrium measuring 0.6 x 0.7 x 0.7 cm. No increased vascularity. No increase in size. This is a very subtle finding but has persisted. Right ovary: 2.9 cm x 2.3 cm x 2.3 cm. Normal size and vascularity, no cystic or solid masses. Small dominant follicle 1.4 cm. Left ovary: 3.2 cm x 3.0 cm x 2.7 cm. Normal size and vascularity, no cystic or solid masses. Multiple small follicles within the ovary. These follicles are of various size. The largest measures 1.2 cm. Small amount of free fluid in the LEFT adnexa. US/US transvaginal [id number] IMPRESSION: 1. Reidentified is a very subtle hyperechoic endometrial nodule measuring 0.6 x 0.7 x 0.7 mm along the posterior endometrium. This may be a broad-based polyp or focal endometrial hyperplasia. No change since 06/10/2025. 2. Small amount of free fluid in the LEFT adnexa. 3. Multiple small follicles of various sizes in the LEFT ovary. 4. No fibroid.
== END 2025-08-19 08:05 | disposition home or self-care (01) ==
LOC: RAD 08:12
PROVIDERS: Visit Provider Obstetrics & Gynecology
DX: Z87.42 Personal history of other diseases of the female genital tract (principal); R93.89 Abnormal findings on diagnostic imaging of other specified body structures; N83.8 Other noninflammatory disorders of ovary, fallopian tube and broad ligament; N83.202 Unspecified ovarian cyst, left side
CPT/HCPCS: 76830